=== PATIENT | female | born 1990 | race Caucasian/White ===

== ENCOUNTER 2016-07-18 10:27 | Day surgery (SDC) | payer MEDICAID ==
[~2016-07-18] VITALS: Ht 165.1 cm; Wt 74.8 kg
[~2016-07-18 10:27] MED LIST: AMOXICILLIN 50500 MG PO; BACLOFEN 10MG T10 MG PO; CELEXA40 MG PO; CETIRIZINE HCL10 MG PO; CITALOPRAM10 MG PO; ETODOLAC400 MG PO; FLEXERIL10 MG PO; HYDROCODONE; HYDROCODONE BIT1 T52 PO; IBUPROFEN; IBUPROFEN 600M600 MG PO; KEFLEX 500MG.500 MG PO; LENZESS PO; LORATADINE10 M1 PO; MOTRIN 400MG.400 MG PO; NEURONTIN 300M300 MG PO; OMEPRAZOLE40 MG PO; PERCOCET 5/3251 EACH PO; PREDNISONE 20MG20 MG PO; PREDNISONE50 MG PO; PRENATAL PLUS1 TA1 PO; RANITIDINE150 M1 PO; SAVELLA25 MG PO; SERTRALINE 100100 MG PO; STERAPRED DS10 MG PO; TESSALON PERLE100 M1 PO; ZITHROMAX Z-PA250 M1 PO; [UNRECOGNIZED DRUG - OTHER] PO
[2016-07-18 10:41] VITALS: BP 116/64
--- NOTE | 2016-07-18 11:13 | Pain Management SOAP Note ---
SOAP Note Pain Clinic Subjective: Patient arriving our procedure area today for epidural steroid injection. Upon arrival patient crying uncontrollably. She is extremely nervous regarding the injection. Patient does not want to have the injection today. I suggested the patient she has the injection and a facility where they use IV sedation. at 1113
== END 2016-07-18 11:25 | disposition home or self-care (01) ==
LOC: PM 10:27
DX: M51.36 Other intervertebral disc degeneration, lumbar region (principal)